=== PATIENT | female | born 1975 | race Caucasian/White ===

== ENCOUNTER 2021-05-04 08:30 | Day surgery (SDC) | payer MEDICARE ==
[2021-05-04] VITALS (7 sets, daily range): BP systolic 112–143; BP diastolic 50–79; PULSE 6–66; TEMP 97.9
[~2021-05-04] VITALS: Ht 170.2 cm; Wt 113.2 kg
[2021-05-04] MEDS ORDERED: CRESTOR 10MG10 MG PO (09:21)
[2021-05-04 09:31] LABS: HEMATOCRIT 43.6 % (37.0-47.0); HEMOGLOBIN 14.4 g/dl (12.5-16.0); MEAN CELL VOLUME 87 fl (80.0-100.0); MEAN CORPUSCULAR HEMOGLOBIN 29 pg (27.0-31.0); MEAN CORPUSCULAR HGB CONC 33 g/dl (33.0-37.0); MEAN PLATELET VOLUME 12.4 fl (7.4-10.4); PLATELET COUNT 268 K/mm3 (130-400); RED BLOOD COUNT 5.04 M/mm3 (4.10-5.30); REDCELL DISTRIBUTION WIDTH-CV 16.8 % (11.5-14.5)
[2021-05-04 09:45] LABS: INR 1.1 (0.8-3.0); PROTHROMBIN TIME 12.1 SECONDS (9.7-12.8)
[2021-05-04 09:48] LABS: PARTIAL THROMBOPLASTIN TIME 30.7 SECONDS (26.0-37.0)
[2021-05-04 09:53] LABS: CALCIUM 9.5 mg/dL (8.4-10.2); CREATININE, serum 0.69 mg/dL (0.57-1.11); POTASSIUM 4.1 mmol/L (3.5-4.5)
--- NOTE | 2021-05-04 10:33 | NUR ---
SEE MERGE FOR ALL MEDICATION ADMINISTRATION TIMES, INTRA AND P0ST SEDATION ASSESSMENTS
[2021-05-04] MEDS ORDERED: CALCIUM 600MG+D1 TAB PO (10:34)
[2021-05-04] MEDS ORDERED: PROBIOTIC BLEN1 EACH PO (10:35)
[2021-05-04] MEDS ORDERED: MAGNESIUM500 MG PO (10:35)
[2021-05-04] MEDS ORDERED: TURMERIC500 MG PO (10:36)
[2021-05-04] MEDS ORDERED: PROTONIX 40MG T40 MG PO (10:36)
[2021-05-04] MEDS ORDERED: [UNRECOGNIZED DRUG - OTHER] PO (10:37)
[2021-05-04] MEDS ORDERED: PHYTOCERAMIDES PO (10:39)
[2021-05-04] MEDS ORDERED: [UNRECOGNIZED DRUG - OTHER] PO (10:40)
[2021-05-04] MEDS ORDERED: VITAMIN K0.1 MG PO (10:41)
[2021-05-04] MEDS ORDERED: ASPIRIN 81M81 MG/TA2 PO (10:41)
[2021-05-04] MEDS ORDERED: MASON NATURAL1200 MG PO (10:42)
--- NOTE | 2021-05-04 12:30 | NUR ---
Pt arrived to floor via cart with lab intern staff at this time. Able to transfer over to bed via slide board with lab intern assistance. R radial band has 12 ccs air in it, no drainage. R groing site is CDI no drainaige. Discussed flast time until 1414, pt agreeable, ordered food, ice water provided, will continue to montior.
--- NOTE | 2021-05-04 16:11 | NUR ---
Nurse on unit noticed pt dressed and walking down hallways, able to stop pt and pt stated she was leaving AMA d/t our non-smoking policy. Ranjan Tse, he spoke ot pt on phone and she still wanted to leave AMA, paper signed, INT dc'd, tele box removed, bandaid placed over R radial access site and pt left on own accord.
== END 2021-05-04 16:00 | disposition left against medical advice (07) ==
LOC: COL.CAR 08:30 → MEDICAL 13:33 → COL.CAR 16:00
PROVIDERS: Internal Medicine Cardiovascular Disease
DX: I25.119 Atherosclerotic heart disease of native coronary artery with unspecified angina pectoris (principal); I10 Essential (primary) hypertension; K21.9 Gastro-esophageal reflux disease without esophagitis; Z79.82 Long term (current) use of aspirin; Z79.899 Other long term (current) drug therapy; F17.210 Nicotine dependence, cigarettes, uncomplicated; F41.9 Anxiety disorder, unspecified; F31.9 Bipolar disorder, unspecified
CPT/HCPCS: OP; C1725; C1760; C1769; C1874; C1887; C1894; C9600; J1644; J2250; J3010; J7030

== ENCOUNTER → 2021-12-22 | Outpatient (CLI) | payer MEDICARE ==
[~2021-12-22] MED LIST: ASPIRIN 81M81 MG/TA2 PO; CALCIUM 600MG+D1 TAB PO; CRESTOR 10MG10 MG PO; MAGNESIUM500 MG PO; MASON NATURAL1200 MG PO; PHYTOCERAMIDES PO; PROBIOTIC BLEN1 EACH PO; PROTONIX 40MG T40 MG PO; TURMERIC500 MG PO; VITAMIN K0.1 MG PO; [UNRECOGNIZED DRUG - OTHER] PO; [UNRECOGNIZED DRUG - OTHER] PO
== END ==
LOC: MC.RAD 09:56
DX: Z12.31 Encounter for screening mammogram for malignant neoplasm of breast (principal)